=== PATIENT | male | born 1950 | race Caucasian/White ===

== ENCOUNTER 2020-04-26 15:28 | Emergency (ER) | payer MEDICARE, OTHER ==
[~2020-04-26] VITALS: Ht 177.8 cm; Wt 90.7 kg
--- NOTE | 2020-04-26 15:42 | NUR ---
TONI FROM [facility] TO ER BED 7. AAOX3, NOT IN RESP DISTRESS. BROUGHT IN FOR R ARM AND R LEG PAIN STARTED TODAY. PER REPORT, NO TRAUMA NO FALL. NO NOTED VISUAL INJURY. PT HAVE HX OF STROKE W/ R SIDED DEFICIT. AWAITING MD FOR EVAL.
[2020-04-26] MEDS ORDERED: MORPHINE SULFATE INJ 2 MG/ML DISP.SYRIN IV ONE ×2 (16:00)
[2020-04-26] MEDS ORDERED: ONDANSETRON HCL/PF 4 MG/2 ML VIAL IVP ONE (16:00)
[2020-04-26] MEDS ORDERED: IV NS 0.9% 500 ML BAG IV ONE (16:00)
[2020-04-26] MEDS ORDERED: KETOROLAC TROMETHAMINE INJ 30 MG/ML VIAL IV ONE (16:00)
[2020-04-26] MEDS ORDERED: ONDANSETRON HCL/PF 4 MG/2 ML VIAL ONE (16:03)
[2020-04-26] MEDS ORDERED: KETOROLAC TROMETHAMINE 15 MG/ML VIAL ONE (16:03)
[2020-04-26] MEDS ORDERED: MORPHINE SULFATE INJ 4 MG/ML DISP.SYRIN ONE (16:03)
[2020-04-26 16:33] LABS: BASOPHILS # (AUTO) 0.1 /CMM (0.0-0.2); BASOPHILS % (AUTO) 0.5 % (0.0-2.0); EOSINOPHILS % (AUTO) 1.3 % (0.0-6.0); HEMATOCRIT 39 % (39-51); HEMOGLOBIN 13.5 g/dL (13.5-17.5); LYMPHOCYTES # (AUTO) 1.8 /CMM (0.8-4.8); LYMPHOCYTES % (AUTO) 17.9 % (20.0-44.0); MEAN CORPUSCULAR HGB CONC 35 g/dl (31.0-36.0); MEAN CORPUSCULAR VOLUME 84 fL (80-96); MONOCYTES # (AUTO) 0.7 /CMM (0.1-1.30); NEUTROPHILS # (AUTO) 7.5 /CMM (1.8-8.9); NEUTROPHILS % (AUTO) 73.3 % (43.0-81.0); PLATELET COUNT (AUTO) 297 /CMM (150-450); RED BLOOD CELL COUNT(AUTO) 4.64 MIL/uL (4.5-6.0); WHITE BLOOD COUNT (AUTO) 10.2 K/uL (4.3-11.0)
[2020-04-26 16:42] LABS: CALCIUM, SERUM 8.8 mg/dL (8.5-10.1); CARBON DIOXIDE 24 mmol/L (21-32); CHLORIDE 99 mmol/L (98-107); CREATININE 1.3 mg/dL (0.6-1.3); GLUCOSE 96 mg/dL (74-106); POTASSIUM 3.9 mmol/L (3.5-5.1); SODIUM SERUM 135 mmol/L (136-145); UREA NITROGEN, BLOOD 24 mg/dL (7-18)
[2020-04-26 16:53] LABS: ALANINE AMINOTRANSFERASE 12 U/L (12-78); ALBUMIN 3.8 g/dL (3.4-5.0); ALKALINE PHOSPHATASE 81 U/L (46-116); ASPARTATE AMINOTRANSFERASE 10 U/L (15-37); BILIRUBIN,DIRECT 0.2 mg/dL (0.0-0.2); BILIRUBIN,TOTAL 0.7 mg/dL (0.2-1.0); LIPASE 154 U/L (73-393); TOTAL PROTEIN, SERUM 7.2 g/dL (6.4-8.2)
[2020-04-26] MEDS ORDERED: IOHEXOL-300 100 ML VIAL IV ONE (17:05)
[2020-04-26] MEDS ORDERED: IV NS 0.9% 250 ML IV ONE (17:05)
[2020-04-26] MEDS ORDERED: CT SWABBABLE VALVE TRANS SET 1 EA INFUS.SET MC ONE (17:05)
--- NOTE | 2020-04-26 18:47 | NUR ---
CALLED TRANSPORT [facility] [phone] ETA IS [address] [facility]!
[2020-04-26] MEDS ORDERED: LORAZEPAM INJ 2 MG/ML VIAL ONE (18:54)
[2020-04-26] MEDS ORDERED: LORAZEPAM INJ 2 MG/ML VIAL IV ONE (19:00)
--- NOTE | 2020-04-26 19:01 | NUR ---
Morphine 4mg IV was not given d/t there is 2 orders. 1 dose given but the 2nd one was not given d/t pt did not need the 2nd dose.
--- NOTE | 2020-04-26 19:09 | NUR ---
spoke with esther adam at the [facility] to notify that the patient is coming back to the facility. report given
--- NOTE | 2020-04-26 19:36 | NUR ---
PT IS BEING TRANSPORTED BACK TO HER FACILITY ON [facility] VIA AMBULANCE W/ 2 AMBULANCE STAFF. REPORT GIVEN TO CARLOS MANUEL #27. PT IS IN STABLE CONDITION FOR TRANSPORT
[2020-04-26 19:37] VITALS: BP 114/58
== END 2020-04-26 19:37 | disposition home or self-care (01) ==
LOC: ER 15:37
DX: M24.541 Contracture, right hand (principal); M79.601 Pain in right arm; M79.604 Pain in right leg; R51 Headache; M54.2 Cervicalgia; R10.9 Unspecified abdominal pain; R53.1 Weakness; I10 Essential (primary) hypertension; Z86.73 Personal history of transient ischemic attack (TIA), and cerebral infarction without residual deficits
CPT/HCPCS: 36415; 70450; 71045; 72125; 73060; 73090; 73501; 74177; 80048; 80076; 82550; 83690; 84484; 85025; 85730; 93005; 96374; 96375; 99285; J1885; J2060; J2270; J2405; J7040; J7050; Q9967

== ENCOUNTER 2020-05-01 13:29 | Emergency (ER) | payer MEDICARE, OTHER ==
[~2020-05-01] VITALS: Ht 177.8 cm; Wt 90.7 kg
--- NOTE | 2020-05-01 13:50 | NUR ---
BIB PA [facility] C/O ABDOMINAL PAIN AND CONSTIPATION X TODAY. PATIENT A/OX4, BREATHING EVEN AND UNLABORED, NO SOB NOTED. NEEDS ATTENDED, KEPT COMFORTABLE.
--- NOTE | 2020-05-01 14:28 | NUR ---
PATIENT TAKEN TO CT.
[2020-05-01 14:50] LABS: BASOPHILS % (AUTO) 0.5 % (0.0-2.0); EOSINOPHILS % (AUTO) 0.6 % (0.0-6.0); HEMATOCRIT 39 % (39-51); HEMOGLOBIN 13.3 g/dL (13.5-17.5); LYMPHOCYTES # (AUTO) 1.2 /CMM (0.8-4.8); LYMPHOCYTES % (AUTO) 12.6 % (20.0-44.0); MEAN CORPUSCULAR HGB CONC 34 g/dl (31.0-36.0); MEAN CORPUSCULAR VOLUME 84 fL (80-96); MONOCYTES # (AUTO) 0.7 /CMM (0.1-1.30); MONOCYTES % (AUTO) 7.7 % (2.0-12.0); NEUTROPHILS # (AUTO) 7.4 /CMM (1.8-8.9); NEUTROPHILS % (AUTO) 78.6 % (43.0-81.0); PLATELET COUNT (AUTO) 294 /CMM (150-450); RED BLOOD CELL COUNT(AUTO) 4.67 MIL/uL (4.5-6.0); WHITE BLOOD COUNT (AUTO) 9.4 K/uL (4.3-11.0)
[2020-05-01 14:57] LABS: CALCIUM, SERUM 9.4 mg/dL (8.5-10.1); POTASSIUM 3.7 mmol/L (3.5-5.1)
[2020-05-01 15:03] LABS: BILIRUBIN,DIRECT 0.2 mg/dL (0.0-0.2); BILIRUBIN,TOTAL 0.7 mg/dL (0.2-1.0); TOTAL PROTEIN, SERUM 7.5 g/dL (6.4-8.2)
--- NOTE | 2020-05-01 15:48 | NUR ---
EHSAN RUIZ TO [facility] [id number] TRIP#[id number]
[2020-05-01 16:02] LABS: BILIRUBIN,URINE MODERATE (NEGATIVE); BLOOD, URINE Moderate Ery/uL (NEGATIVE); COLOR,URINE Yellow (YELLOW); KETONES,URINE 40 (NEGATIVE); LEUKOCYTE ESTERASE ,URINE Negative (NEGATIVE); NITRITE, URINE Negative (NEGATIVE); PH,URINE 5.5 (5.0-8.0); PROTEIN,URINE Trace mg/dl (NEGATIVE); UGLUCOSE Negative (NEGATIVE)
[2020-05-01 16:23] LABS: APPEARANCE,URINE SLIGHTLY HAZY (CLEAR)
[2020-05-01 16:24] LABS: BACTERIA,URINE Rare /HPF (None Seen); SQUAMOUS EPITHELIAL CELL,UR Rare /HPF (None Seen); URINE AMORPHOUS URATE Few /HPF (None Seen)
--- NOTE | 2020-05-01 16:55 | NUR ---
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 VITALS STABLE.
--- NOTE | 2020-05-01 16:59 | NUR ---
REPORT GIVEN TO PARUL PAIGE JANNETH Poptent.
[2020-05-01 17:02] VITALS: BP 128/70
--- NOTE | 2020-05-01 17:13 | NUR ---
Patient discharged to [facility] in stable condition. Written and verbal after care instructions given. Patient verbalizes understanding of instruction. Discharged via ambulance.
[2020-05-02] MEDS ORDERED: PETR113O TP (14:48)
[2020-05-02] MEDS ORDERED: RISP0.2515 PO (14:48)
[2020-05-02] MEDS ORDERED: LISI10TA5 PO (14:48)
[2020-05-02] MEDS ORDERED: BISA10SU11 RC (14:48)
[2020-05-02] MEDS ORDERED: DOCU-264 PO (14:48)
[2020-05-02] MEDS ORDERED: CLOP75TA15 PO (14:48)
[2020-05-02] MEDS ORDERED: AMLO10TA7 PO (14:48)
== END 2020-05-01 17:12 | disposition home or self-care (01) ==
LOC: ER 13:32
DX: R10.30 Lower abdominal pain, unspecified (principal); I10 Essential (primary) hypertension; Z86.73 Personal history of transient ischemic attack (TIA), and cerebral infarction without residual deficits
CPT/HCPCS: 36415; 80048-TC; 80076-TC; 81000-TC; 83690-TC; 85025-TC

== ENCOUNTER 2020-05-02 14:02 | Emergency (ER) | payer MEDICARE, OTHER ==
[~2020-05-02] VITALS: Ht 177.8 cm; Wt 90.7 kg
[2020-05-02] MEDS ORDERED: LISI10TA5 PO (14:48)
[2020-05-02] MEDS ORDERED: PETR113O TP (14:48)
[2020-05-02] MEDS ORDERED: BISA10SU11 RC (14:48)
[2020-05-02] MEDS ORDERED: AMLO10TA7 PO (14:48)
[2020-05-02] MEDS ORDERED: RISP0.2515 PO (14:48)
[2020-05-02] MEDS ORDERED: CLOP75TA15 PO (14:48)
[2020-05-02] MEDS ORDERED: DOCU-264 PO (14:48)
[2020-05-02] MEDS ORDERED: KETOROLAC TROMETHAMINE INJ 30 MG/ML VIAL IV ONE (15:00)
[2020-05-02] MEDS ORDERED: IV NS 0.9% 1,000 ML BAG IV ONE (15:00)
--- NOTE | 2020-05-02 15:22 | NUR ---
patient refusing treatment, blood works and iv insertion.
--- NOTE | 2020-05-02 15:25 | NUR ---
Spoke with Amanda at [facility], gave report that patient is refusing any treatment at this time. Dr. Vinson spoke to the patient, explained risks and benefits.
--- NOTE | 2020-05-02 15:35 | NUR ---
CALLED [facility] FOR TRANSPORT TO [facility]. ETA [phone].
--- NOTE | 2020-05-02 16:05 | NUR ---
CALLED [facility] TRIP# [id number] ETA: [phone]
--- NOTE | 2020-05-02 16:17 | NUR ---
MILA OSEGUERA BROTHER MADE AWARE OF SITUATION.
--- NOTE | 2020-05-02 18:10 | NUR ---
Patient discharged to [facility] in stable condition. Written and verbal after care instructions given. Patient verbalizes understanding of instruction. Vitals stable.
[2020-05-02 18:11] VITALS: BP 117/72
== END 2020-05-02 18:11 ==
LOC: ER 14:13
DX: R10.9 Unspecified abdominal pain (principal); K59.00 Constipation, unspecified; I10 Essential (primary) hypertension; Z86.73 Personal history of transient ischemic attack (TIA), and cerebral infarction without residual deficits; Z79.899 Other long term (current) drug therapy

== ENCOUNTER 2020-06-06 09:02 | Emergency (ER) | payer MEDICARE, OTHER ==
[~2020-06-06] VITALS: Ht 188 cm; Wt 85.7 kg
[~2020-06-06 09:02] MED LIST: AMLO10TA7 PO; BISA10SU11 RC; CLOP75TA15 PO; DOCU-264 PO; LISI10TA5 PO; PETR113O TP; RISP0.2515 PO
--- NOTE | 2020-06-06 09:06 | NUR ---
TONI FROM [facility] C/O R KNEE PAIN S/P UNWITNESSED FALL FROM WHEELCHAIR. PER REPORT, PATIENT AO x 1 BUT MOANS AND REACHES OUT TO HIS R KNEE. PATIENT HAS Hx OF CVA W R SIDED WEAKNESS. TO ER BED 9, HOOKED TO MONITOR, CHANGED TO HOSP GOWN, WARM BLANKET PROVIDED, BREATHING EVENA ND UNLABORED. DR MCKENNA AT BEDSIDE FOR EVAL.
[2020-06-06] MEDS ORDERED: HALO5TAB8 MT (09:57)
--- NOTE | 2020-06-06 10:15 | NUR ---
CALLED TRANSPORT [facility] 1230 TRIP NUMBER [id number].
[2020-06-06] MEDS ORDERED: HYDROCODONE/APAP 5/325MG 1 EACH TABLET PO ONE (10:30)
[2020-06-06] MEDS ORDERED: HYDROCODONE/APAP 5/325MG 1 EACH TABLET ONE (10:34)
--- NOTE | 2020-06-06 11:41 | NUR ---
CONTACTED JOHN PAIGE, NO ANSWER, FULL.
--- NOTE | 2020-06-06 11:47 | NUR ---
Patient picked up by [facility] stable condition. Discharge paper provided to EMT, to be given to the facility. Patient will be brought to [facility].
[2020-06-06 11:50] VITALS: BP 131/74
== END 2020-06-06 12:06 ==
LOC: ER 09:04
DX: S80.01XA Contusion of right knee, initial encounter (principal); R53.1 Weakness; I10 Essential (primary) hypertension; Z86.73 Personal history of transient ischemic attack (TIA), and cerebral infarction without residual deficits; Z79.899 Other long term (current) drug therapy; W05.0XXA Fall from non-moving wheelchair, initial encounter; Y93.89 Activity, other specified; Y92.89 Other specified places as the place of occurrence of the external cause; Y99.8 Other external cause status
CPT/HCPCS: 73502; 73564-TC

== ENCOUNTER 2025-06-25 11:19 | Inpatient (IN) | payer MEDICARE, OTHER ==
[~2025-06-25] VITALS: Ht 170.2 cm; Wt 72.6 kg
[~2025-06-25 11:19] MED LIST changes: +AMLO-213 PO; -AMLO10TA7 PO; -DOCU-264 PO; +DOCU-342 PO; +HALO5TAB8 MT; +LISI10TA29 PO; -LISI10TA5 PO; -PETR113O TP
[2025-06-25 11:45] LABS: PLATELET COUNT (AUTO) 330 K/uL (150-450); RED BLOOD CELL COUNT(AUTO) 4.18 MIL/uL (4.5-6.0); RED CELL DISTRIBUTION WIDTH 13.5 % (11.5-15.0); WHITE BLOOD COUNT (AUTO) 6.1 K/uL (4.3-11.0)
[2025-06-25 11:48] LABS: APPEARANCE,URINE SLIGHTLY CLOUDY (CLEAR); BLOOD, URINE NEGATIVE Ery/uL (NEGATIVE); LEUKOCYTE ESTERASE ,URINE 1+ (NEGATIVE); NITRITE, URINE POSITIVE (NEGATIVE); UGLUCOSE NEGATIVE (NEGATIVE)
[2025-06-25 11:54] LABS: CALCIUM, SERUM 9.0 mg/dL (8.5-10.1); CREATININE 1.0 mg/dL (0.6-1.3); SODIUM SERUM 138 mmol/L (136-145); UREA NITROGEN, BLOOD 14 mg/dL (7-18)
[2025-06-25 11:58] LABS: ALCOHOL, BLOOD < 3 mg/dL (0-10); ASPARTATE AMINOTRANSFERASE 27 U/L (15-37); TOTAL PROTEIN, SERUM 7.2 g/dL (6.4-8.2)
[2025-06-25 11:59] LABS: AMPHETAMINE, URINE NEGATIVE (NEGATIVE); BARBITURATE, URINE NEGATIVE (NEGATIVE); BENZODIAZEPINE, URINE NEGATIVE (NEGATIVE); CANNABINOID, URINE NEGATIVE (NEGATIVE); COCCAINE, URINE NEGATIVE (NEGATIVE); OPIATE, URINE NEGATIVE (NEGATIVE)
[2025-06-25] MEDS ORDERED: CIPROFLOXACIN HCL 500 MG TABLET ONE (12:02)
[2025-06-25] MEDS: CIPROFLOXACIN HCL 500 MG TABLET PO ONE (12:04)
[2025-06-25 12:06] LABS: ADD URINE CULTURE YES
[2025-06-25 12:07] LABS: SQUAMOUS EPITHELIAL CELL,UR Few /HPF (None Seen)
[2025-06-25] MEDS ORDERED: HALO2TAB PO (12:16)
[2025-06-25] MEDS ORDERED: LORA-259 PO (12:16)
[2025-06-25] MEDS ORDERED: ACET-73 PO (12:16)
[2025-06-25] MEDS ORDERED: CLON0.5T4 PO (12:16)
[2025-06-25 13:30] VITALS: O2SAT 98
[2025-06-25] MEDS: OLANZAPINE 10 MG VIAL IM ONE (14:12)
[2025-06-25] MEDS ORDERED: MAG HYDROX/AL HYDROX/SIMETH 30 ML UDC PO PRN (15:00)
[2025-06-25] MEDS: BLOOD SUGAR DIAGNOSTIC 1 EACH STRIP IN ONE (15:00)
[2025-06-25] MEDS ORDERED: MAGNESIUM HYDROXIDE 30 ML UDC PO PRN (15:00)
[2025-06-25] MEDS ORDERED: LORAZEPAM 1 MG TABLET PO PRN (15:00)
[2025-06-25] MEDS ORDERED: ACETAMINOPHEN 325 MG TABLET PO PRN (15:00)
[2025-06-25] MEDS ORDERED: TEMAZEPAM 7.5 MG CAPSULE PO PRN (15:00)
[2025-06-25] MEDS: LORAZEPAM INJ 2 MG/ML VIAL IM STA (16:00)
[2025-06-25] MEDS: HALOPERIDOL LACTATE INJ 5 MG/ML VIAL IM STA ×2 (16:05→16:12)
[2025-06-25 16:13] VITALS: BP 183/87; TEMP 98; O2SAT 98
[2025-06-26] MEDS: CEPHALEXIN MONOHYDRATE 500 MG CAPSULE PO SCH (08:32)
[2025-06-26] MEDS: LISINOPRIL (10MG) 10 MG TABLET PO SCH (08:32)
[2025-06-26] MEDS: CLOPIDOGREL BISULFATE 75 MG TABLET PO SCH (08:32)
[2025-06-26] MEDS: QUETIAPINE FUMARATE 25 MG TABLET PO SCH (17:19)
[2025-06-27 08:31] VITALS: BP 111/54; TEMP 97.8; O2SAT 98
[2025-06-27] MEDS: LORAZEPAM 0.5 MG TABLET PO PRN (11:40)
[2025-06-27] MEDS: HALOPERIDOL LACTATE INJ 5 MG/ML VIAL IM ONE (13:15)
[2025-06-27] MEDS: LORAZEPAM INJ 2 MG/ML VIAL IM STA (13:16)
[2025-06-27 16:08] VITALS: BP 163/92; TEMP 98; O2SAT 99
[2025-06-27] MEDS: QUETIAPINE FUMARATE 25 MG TABLET PO SCH (16:21)
[2025-06-27 19:47] VITALS: BP 122/74; TEMP 98; O2SAT 100
[2025-06-28 08:00] VITALS: BP 115/65; TEMP 98.7; O2SAT 100
[2025-06-28 15:52] VITALS: BP 135/67; TEMP 98.6; O2SAT 99
[2025-06-28 19:44] VITALS: BP 123/62; TEMP 98.4; O2SAT 99
[2025-06-29 08:00] VITALS: BP 119/60; TEMP 98; O2SAT 97
[2025-06-29 16:00] VITALS: BP 136/59; TEMP 97.5; O2SAT 99
[2025-06-29 19:55] VITALS: BP 147/73; TEMP 97.3; O2SAT 98
[2025-06-29] MEDS: QUETIAPINE FUMARATE 25 MG TABLET PO SCH (21:37)
[2025-06-30 08:00] VITALS: BP 128/62; TEMP 97.7; O2SAT 98
[2025-06-30 16:00] VITALS: BP 123/72; TEMP 97.7; O2SAT 97
[2025-06-30 21:16] VITALS: BP 135/82; TEMP 97.9; O2SAT 97
[2025-07-01 08:00] VITALS: BP 141/75; TEMP 98.4; O2SAT 98
[2025-07-01 16:00] VITALS: BP 100/54; TEMP 98.9; O2SAT 96
[2025-07-01 21:07] VITALS: BP 108/64; TEMP 98.8; O2SAT 97
[2025-07-02 08:00] VITALS: BP 122/75; TEMP 97.7; O2SAT 97
[2025-07-02 16:00] VITALS: BP_SYST 118; BP_SYST 128; BP_DIAS 64; BP_DIAS 90; TEMP 97.8; O2SAT 94; O2SAT 99
[2025-07-02 20:45] VITALS: BP 127/75; TEMP 97.7; O2SAT 99
[2025-07-03] MEDS: Z GUARD REMEDY 4 OZ OINT TP PRN (04:44)
[2025-07-03 08:00] VITALS: BP 107/66; TEMP 98.6; O2SAT 97
[2025-07-03 16:00] VITALS: BP 112/60; TEMP 98.4; O2SAT 99
[2025-07-03] MEDS: HALOPERIDOL LACTATE INJ 5 MG/ML VIAL IM STA (17:08)
[2025-07-03] MEDS: LORAZEPAM INJ 2 MG/ML VIAL IM STA (17:09)
[2025-07-03 20:00] VITALS: BP 131/66; TEMP 97.9; O2SAT 98
[2025-07-03] MEDS: QUETIAPINE FUMARATE 25 MG TABLET PO SCH (21:11)
[2025-07-04 08:00] VITALS: BP 127/52; TEMP 97.7; O2SAT 97
[2025-07-04] MEDS: CLOTRIMAZOLE 1% 15 GM TUBE TP SCH (16:01)
[2025-07-04 16:10] VITALS: BP 105/56; TEMP 97.6; O2SAT 96
[2025-07-04 20:46] VITALS: BP 112/68; TEMP 97.8; O2SAT 98
[2025-07-05 08:00] VITALS: BP 102/57; TEMP 98.7; O2SAT 100
[2025-07-05] MEDS: HALOPERIDOL LACTATE INJ 5 MG/ML VIAL IM STA (09:21)
[2025-07-05] MEDS: LORAZEPAM INJ 2 MG/ML VIAL IM STA (09:21)
[2025-07-05 16:00] VITALS: BP 115/69; TEMP 98.7; O2SAT 98
[2025-07-05] MEDS: QUETIAPINE FUMARATE 25 MG TABLET PO SCH (17:02)
[2025-07-05 20:02] VITALS: BP 117/70; TEMP 98; O2SAT 98
[2025-07-06 08:00] VITALS: BP 111/58; TEMP 97.7; O2SAT 98
[2025-07-06 16:00] VITALS: BP 112/89; TEMP 97.9; O2SAT 98
[2025-07-06 20:03] VITALS: BP 106/54; TEMP 97.1; O2SAT 96
[2025-07-06] MEDS: QUETIAPINE FUMARATE 25 MG TABLET PO SCH (21:37)
[2025-07-06] MEDS: TEMAZEPAM 7.5 MG CAPSULE PO PRN (23:49)
[2025-07-07 08:00] VITALS: BP 102/57; TEMP 98.1; O2SAT 100
[2025-07-07 15:54] VITALS: BP 138/71; TEMP 97.5; O2SAT 97
[2025-07-07 20:40] VITALS: BP 102/63; TEMP 97.7; O2SAT 97
[2025-07-08 08:00] VITALS: BP 103/59; TEMP 98.7; O2SAT 97
[2025-07-08 16:00] VITALS: BP 113/76; TEMP 98.9; O2SAT 96
[2025-07-08 21:05] VITALS: BP 119/57; TEMP 98.4; O2SAT 97
[2025-07-09 08:00] VITALS: BP 107/61; TEMP 97.9; O2SAT 100
[2025-07-09 16:00] VITALS: BP 126/65; TEMP 97.8; O2SAT 100
[2025-07-09 20:37] VITALS: BP 108/56; TEMP 98.4; O2SAT 98
[2025-07-10 08:00] VITALS: BP 98/72; TEMP 98.7; O2SAT 99
[2025-07-10 08:41] VITALS: BP 98/72
== END 2025-07-10 11:45 | DRG 885 ==
LOC: ER 11:24 → GPS 14:41
PROVIDERS: ADMIT Nurse Practitioner Psychiatric/Mental Health; ATTEND Nurse Practitioner Acute Care
DX: F25.0 Schizoaffective disorder, bipolar type (principal); N39.0 Urinary tract infection, site not specified; I69.351 Hemiplegia and hemiparesis following cerebral infarction affecting right dominant side; I10 Essential (primary) hypertension; Z20.822 Contact with and (suspected) exposure to COVID-19; E78.5 Hyperlipidemia, unspecified; Z60.8 Other problems related to social environment; F29 Unspecified psychosis not due to a substance or known physiological condition; Z73.6 Limitation of activities due to disability; B96.20 Unspecified Escherichia coli [E. coli] as the cause of diseases classified elsewhere; Z79.899 Other long term (current) drug therapy; Z91.199 Patient's noncompliance with other medical treatment and regimen due to unspecified reason
CPT/HCPCS: 36415; 80048-TC; 80076-TC; 81001; 85025-TC; 87081-TC; 87086-TC; 87186-TC; 97110-TC; 97164; 97530-TC; G0480; J1200; J1630; J2060

== ENCOUNTER 2025-07-20 17:53 | Inpatient (IN) | payer MEDICARE, OTHER ==
[~2025-07-20] VITALS: Ht 177.8 cm; Wt 72.6 kg
[~2025-07-20 17:53] MED LIST changes: +ACET-73 PO; -AMLO-213 PO; -BISA10SU11 RC; +CLON0.5T4 PO; +CYAN10006 IM; -DOCU-342 PO; +ERGO500093 PO; +HALO2TAB PO; -HALO5TAB8 MT; +LORA-259 PO; -RISP0.2515 PO
[2025-07-20 18:34] LABS: PLATELET COUNT (AUTO) 422 K/uL (150-450); RED BLOOD CELL COUNT(AUTO) 3.83 MIL/uL (4.5-6.0); RED CELL DISTRIBUTION WIDTH 12.6 % (11.5-15.0); WHITE BLOOD COUNT (AUTO) 10.4 K/uL (4.3-11.0)
[2025-07-20] MEDS ORDERED: ACET325T53 PO (18:36)
[2025-07-20] MEDS ORDERED: TEMA15CA5 PO (18:36)
[2025-07-20] MEDS ORDERED: MULT-754 PO (18:36)
[2025-07-20] MEDS ORDERED: QUET50TA PO ×2 (18:36)
[2025-07-20] MEDS ORDERED: ASCO500T10 PO (18:36)
[2025-07-20] MEDS ORDERED: MAG-55 PO (18:36)
[2025-07-20] MEDS ORDERED: ZINC220C6 PO (18:36)
[2025-07-20] MEDS ORDERED: DIVA125T32 PO (18:36)
[2025-07-20] MEDS ORDERED: CYAN100096 PO (18:36)
[2025-07-20] MEDS ORDERED: LEVO25TA7 PO (18:36)
[2025-07-20] MEDS ORDERED: MAGN400O6 PO (18:36)
[2025-07-20] MEDS: LORAZEPAM INJ 2 MG/ML VIAL IM ONE (18:38)
[2025-07-20] MEDS: HALOPERIDOL LACTATE INJ 5 MG/ML VIAL IM ONE (18:38)
[2025-07-20 18:45] LABS: CALCIUM, SERUM 8.8 mg/dL (8.5-10.1); CREATININE 1.0 mg/dL (0.6-1.3); SODIUM SERUM 140 mmol/L (136-145); UREA NITROGEN, BLOOD 17 mg/dL (7-18)
[2025-07-20 18:58] LABS: ASPARTATE AMINOTRANSFERASE 17 U/L (15-37); TOTAL PROTEIN, SERUM 6.9 g/dL (6.4-8.2)
[2025-07-20 19:00] LABS: ALCOHOL, BLOOD < 3 mg/dL (0-10)
[2025-07-20 19:00] LABS: APPEARANCE,URINE CLEAR (CLEAR); BLOOD, URINE TRACE-INTA Ery/uL (NEGATIVE); LEUKOCYTE ESTERASE ,URINE NEGATIVE (NEGATIVE); NITRITE, URINE NEGATIVE (NEGATIVE); UGLUCOSE NEGATIVE (NEGATIVE)
[2025-07-20 19:06] LABS: ADD URINE CULTURE NO; SQUAMOUS EPITHELIAL CELL,UR None Seen /HPF (None Seen)
[2025-07-20 19:11] LABS: AMPHETAMINE, URINE NEGATIVE (NEGATIVE); BARBITURATE, URINE NEGATIVE (NEGATIVE); BENZODIAZEPINE, URINE NEGATIVE (NEGATIVE); CANNABINOID, URINE NEGATIVE (NEGATIVE); COCCAINE, URINE NEGATIVE (NEGATIVE); OPIATE, URINE NEGATIVE (NEGATIVE)
[2025-07-20] MEDS ORDERED: MAG HYDROX/AL HYDROX/SIMETH 30 ML UDC PO PRN (23:30)
[2025-07-20] MEDS ORDERED: ACETAMINOPHEN 325 MG TABLET PO PRN (23:30)
[2025-07-20] MEDS ORDERED: LORAZEPAM 1 MG TABLET PO PRN ×2 (23:30)
[2025-07-20] MEDS ORDERED: TEMAZEPAM 15 MG CAPSULE PO PRN (23:30)
[2025-07-20] MEDS ORDERED: MAGNESIUM HYDROXIDE 30 ML UDC PO PRN (23:30)
[2025-07-21] MEDS ORDERED: Z GUARD REMEDY 4 OZ OINT TP PRN
[2025-07-21] MEDS ORDERED: ERGOCALCIFEROL (VITAMIN D 2) 50,000 UNIT CAPSULE PO SCH
[2025-07-21] MEDS ORDERED: MAGNESIUM HYDROXIDE 30 ML UDC PO PRN
[2025-07-21] MEDS ORDERED: ACETAMINOPHEN 325 MG TABLET PO PRN
[2025-07-21] MEDS ORDERED: TEMAZEPAM 15 MG CAPSULE PO PRN
[2025-07-21 00:30] VITALS: BP 125/68; TEMP 98; O2SAT 98
[2025-07-21] MEDS: BLOOD SUGAR DIAGNOSTIC 1 EACH STRIP IN ONE (00:53)
[2025-07-21] MEDS: LEVOTHYROXINE SODIUM 25 MCG TABLET PO SCH (07:42)
[2025-07-21 08:00] VITALS: BP 129/58; TEMP 98.3; O2SAT 96
[2025-07-21] MEDS: CLOPIDOGREL BISULFATE 75 MG TABLET PO SCH (08:35)
[2025-07-21] MEDS: ZINC SULFATE 220 MG CAPSULE PO SCH (08:36)
[2025-07-21] MEDS: ASCORBIC ACID 500 MG TABLET PO SCH (08:36)
[2025-07-21] MEDS: CYANOCOBALAMIN 500 MCG TABLET PO SCH (08:36)
[2025-07-21] MEDS: LISINOPRIL (10MG) 10 MG TABLET PO SCH (08:37)
[2025-07-21] MEDS: MULTIVITAMINS,THERAGRAN 1 UDTAB TABLET PO SCH (08:38)
[2025-07-21] MEDS: QUETIAPINE FUMARATE 25 MG TABLET PO SCH (11:10)
[2025-07-21] MEDS: DIVALPROEX SODIUM 125 MG CAP.SPRINK PO SCH (11:10)
[2025-07-21 15:40] VITALS: BP 112/58; TEMP 97.5; O2SAT 98
[2025-07-21 20:32] VITALS: BP 116/64; TEMP 97.8; O2SAT 99
[2025-07-22 08:15] VITALS: BP 116/60; TEMP 97.8; O2SAT 97
[2025-07-22 16:12] VITALS: BP 125/74; TEMP 97.9; O2SAT 97
[2025-07-22 20:54] VITALS: BP 152/64; TEMP 97.9; O2SAT 98
[2025-07-22 21:30] VITALS: BP 132/70; TEMP 98; O2SAT 98
[2025-07-23 08:00] VITALS: BP 122/70; TEMP 97.8; O2SAT 99
[2025-07-23 15:31] VITALS: BP 106/60; TEMP 98.6; O2SAT 97
[2025-07-23 20:51] VITALS: BP 110/54; TEMP 98.3; O2SAT 98
[2025-07-24 08:22] VITALS: BP 123/62; TEMP 97.8; O2SAT 98
[2025-07-24 16:00] VITALS: BP 125/63; TEMP 97.9; O2SAT 99
[2025-07-24] MEDS: QUETIAPINE FUMARATE 25 MG TABLET PO SCH (16:58)
[2025-07-24 19:59] VITALS: BP 107/65; TEMP 97.5; O2SAT 100
[2025-07-25 08:13] VITALS: BP 136/71; TEMP 97.7; O2SAT 99
[2025-07-25 16:00] VITALS: BP_SYST 122; BP_SYST 96; BP_DIAS 59; BP_DIAS 72; TEMP 97.8; TEMP 97.9; O2SAT 98; O2SAT 99
[2025-07-25 19:51] VITALS: BP 122/60; TEMP 97.9; O2SAT 100
[2025-07-26 08:00] VITALS: BP 111/58; TEMP 98; O2SAT 97
[2025-07-26 16:00] VITALS: BP 114/60; TEMP 97.8; O2SAT 100
[2025-07-26 20:48] VITALS: BP 118/48; TEMP 97.4; O2SAT 97
[2025-07-27 08:00] VITALS: BP 114/52; TEMP 97.9; O2SAT 97
[2025-07-27 16:02] VITALS: BP 116/88; TEMP 97.8; O2SAT 96
[2025-07-27 20:00] VITALS: BP 130/65; TEMP 97.8; O2SAT 98
[2025-07-28 08:00] VITALS: BP 108/54; TEMP 98; O2SAT 99
[2025-07-28 16:00] VITALS: BP 115/60; TEMP 98.8; O2SAT 98
[2025-07-28 20:15] VITALS: BP 124/61; TEMP 98.4; O2SAT 98
[2025-07-29 08:00] VITALS: BP 114/62; TEMP 97.9; O2SAT 98
[2025-07-29 16:00] VITALS: BP 113/68; TEMP 98.6; O2SAT 99
[2025-07-29 21:17] VITALS: BP 125/78; TEMP 98.6; O2SAT 98
[2025-07-30] MEDS: TEMAZEPAM 7.5 MG CAPSULE PO PRN (02:29)
[2025-07-30 08:00] VITALS: BP 99/60; TEMP 97.9; O2SAT 97
[2025-07-30 16:00] VITALS: BP 105/78; TEMP 98.4; O2SAT 100
[2025-07-31 08:00] VITALS: BP 126/56; TEMP 98.1; O2SAT 100
[2025-07-31 16:00] VITALS: BP 123/61; TEMP 97.7; O2SAT 98
[2025-07-31 19:40] VITALS: BP 107/59; TEMP 97.8; O2SAT 98
[2025-07-31] MEDS: QUETIAPINE FUMARATE 25 MG TABLET PO SCH (21:27)
[2025-08-01 08:00] VITALS: BP 119/64; TEMP 97.8; O2SAT 98
[2025-08-01 16:00] VITALS: BP 118/62; TEMP 98.6; O2SAT 99
[2025-08-01 19:47] VITALS: BP 121/58; TEMP 98.3; O2SAT 99
[2025-08-02 08:00] VITALS: BP 108/55; TEMP 97.8; O2SAT 100
[2025-08-02 08:16] VITALS: BP 108/55
== END 2025-08-02 14:10 | DRG 885 ==
LOC: ER 17:55 → GPS 22:16
PROVIDERS: ADMIT Registered Nurse; ATTEND Nurse Practitioner Acute Care
DX: F25.0 Schizoaffective disorder, bipolar type (principal); I69.351 Hemiplegia and hemiparesis following cerebral infarction affecting right dominant side; D68.59 Other primary thrombophilia; E44.1 Mild protein-calorie malnutrition; F01.518 Vascular dementia, unspecified severity, with other behavioral disturbance; F29 Unspecified psychosis not due to a substance or known physiological condition; I10 Essential (primary) hypertension; E03.9 Hypothyroidism, unspecified; E78.5 Hyperlipidemia, unspecified; Z79.899 Other long term (current) drug therapy; Z20.822 Contact with and (suspected) exposure to COVID-19; Z73.6 Limitation of activities due to disability; R53.1 Weakness; E88.09 Other disorders of plasma-protein metabolism, not elsewhere classified; Z68.23 Body mass index [BMI] 23.0-23.9, adult
CPT/HCPCS: 36415; 80048-TC; 80076-TC; 81001; 82962-TC; 85025-TC; 87081-TC; 97110-TC; 97530-TC; G0480